=== PATIENT | male | born 1985 | race Caucasian/White ===

== ENCOUNTER 2023-01-23 08:46 | Emergency (ER) | payer MEDICAID ==
[~2023-01-23] VITALS: Ht 172.7 cm; Wt 64.9 kg
[2023-01-23 10:27] VITALS: BP 147/86
[2023-01-23] MEDS ORDERED: CEPH-510 PO (11:11)
[2023-01-23] MEDS ORDERED: NAPR500T31 PO (11:11)
== END 2023-01-23 11:18 | disposition home or self-care (01) ==
LOC: ER 08:46
DX: S61.212A Laceration without foreign body of right middle finger without damage to nail, initial encounter (principal); S61.210A Laceration without foreign body of right index finger without damage to nail, initial encounter; W26.0XXA Contact with knife, initial encounter; Y93.89 Activity, other specified; Y92.89 Other specified places as the place of occurrence of the external cause; Y99.8 Other external cause status
CPT/HCPCS: 12002